=== PATIENT | female | born 1995 | race Caucasian/White ===

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

== ENCOUNTER 2017-10-12 01:23 | Emergency (ER) | payer OTHER ==
[~2017-10-12] VITALS: Ht 160 cm; Wt 68.0 kg
[~2017-10-12 01:23] MED LIST: IBUPROFEN600 M1 PO; LEVSIN0.125 M1 PO; ZOFRAN ODT4 M1 SL
--- NOTE | 2017-10-12 01:46 | ED CARDIAC/CP/PALPITATIONS ---
History of Present Illness General Chief Complaint: Chest Pain Stated Complaint: PT C/O CHEST DISCOMFORT/PAIN Source: patient, friend Exam Limitations: no limitations Vital Signs & Intake/Output Vital Signs & Intake/Output Vital Signs Date Time Temp Pulse Resp B/P B/P Pulse O2 O2 Flow FiO2 Mean Ox Delivery Rate 10/12 0138 99 Room Air 10/13 135 96.8 87 18 119/76 98 Room Air Allergies Coded Allergies: Bleach (Sodium Hypochlorite) (Mild, HIVES 12/28/16) Reconcile Medications Hyoscyamine (Levsin) 0.125 MG TABLET 1-2 TAB PO Q6P PRN ABDOMINAL CRAMPS Ibuprofen 600 MG TABLET 1 TAB PO Q6P PRN PAIN with food Ondansetron (Zofran Odt) 4 MG TAB.RAPDIS 1 TAB SL Q6P PRN NAUSEA/VOMITING Triage Note: PT FROM HOME C/O CHEST PAIN X1 HR. PER PT SHE WAS DRIVING [place] FROM [place] AND FELT A SHARP CHEST PAIN LASTING SECONDS, CP IS INTERMITTENT. PT STATES SOB WHEN CP OCCURS, DENIES JAW OR BACK PAIN, N/V. PT STATES LEFT ARM AND FOOT ARE NUMB AND TINGLING. PT VSS. NO DISTRESS NOTED CURRENTLY. Triage Nurses Notes Reviewed? yes : No Patient currently breastfeeds: No HPI: Patient presents with a sharp substernal chest pain which has been occurring on and off over the past hour. Patient states the pain will come on suddenly and lasts a few seconds and then go away. There is no radiation. There are no aggravating or mitigating factors. The patient started while driving. Patient states she is now beginning to feel slightly short of breath. Patient states on the waiting room she suddenly felt she had to move her bowels and passed a moderate amount of bright red blood per rectum. Patient is now getting a periumbilical crampy pain. There is no radiation of that pain. The sharp chest pain she rates as a 7 out of 10 when it is present and is 0 out of 10 when it goes away. The crampy abdominal pain she rates as a 3 out of 10 and is constant. There is no radiation. There are no aggravating or mitigating factors. It seemed just started a few minutes ago. Past History Travel History Traveled to [place] past 21 day No Medical History Any Pertinent Medical History? see below for history Gastrointestinal: irritable bowel syndrome Surgical History Surgical History: non-contributory Psychosocial History What is your primary language Occitan Tobacco Use: Never used ETOH Use: denies use Illicit Drug Use: denies illicit drug use Family History Hx Contributory? No Review of Systems Review of Systems Constitutional: Reports: no symptoms. EENTM: Reports: no symptoms. Respiratory: Reports: see HPI, short of breath. Cardiovascular: Reports: see HPI, chest pain. GI: Reports: see HPI, abdominal pain, bloody stool. Genitourinary: Reports: no symptoms. Musculoskeletal: Reports: no symptoms. Skin: Reports: no symptoms. Neurological/Psychological: Reports: no symptoms. Hematologic/Endocrine: Reports: no symptoms. Immunologic/Allergic: Reports: no symptoms. All Other Systems: Reviewed and Negative Physical Exam Physical Exam General Appearance: well developed/nourished, alert, awake, anxious, mild distress Head: atraumatic Eyes: Bilateral: PERRL, EOMI. Ears, Nose, Throat: normal pharynx, normal ENT inspection, hearing grossly normal Neck: normal inspection, supple, full range of motion Respiratory: normal breath sounds, chest non-tender, no respiratory distress, lungs clear Cardiovascular: regular rate/rhythm, normal peripheral pulses Gastrointestinal: normal bowel sounds, soft, non-tender, no organomegaly Back: normal inspection, normal range of motion Extremities: normal inspection, normal capillary refill, normal range of motion, no edema Neurologic/Psych: no motor/sensory deficits, awake, alert, oriented x 3, normal gait, normal mood/affect Skin: intact, normal color, warm/dry Lymphatic: no anterior cervical andrew Core Measures ACS in differential dx? No CVA/TIA Diagnosis No Sepsis Present: No Sepsis Focused Exam Completed? No Progress Differential Diagnosis: AMI, cholecystitis, costochondritis, myocarditis, pericarditis, pulmonary embolism, PUD/GERD Plan of Care: Orders Procedure Date/time Status URINALYSIS 10/12 145 Complete TROPONIN LEVEL 10/12 145 Complete LIPASE 10/12 145 Complete HUMAN BETA HCG SCREEN 10/12 145 Complete D-DIMER 10/12 145 Complete COMPREHENSIVE METABOLIC PANEL 10/12 145 Complete CBC WITHOUT DIFFERENTIAL 10/12 145 Complete AMYLASE 10/12 145 Complete EKG 10/129 Active Laboratory Tests 10/12/17 0226: Urine Color YEL, Urine Clarity CLEAR, Urine pH 6.5, Ur Specific [place] 1.025, Urine Protein NEG, Urine Ketones NEG, Urine Nitrite NEG, Urine Bilirubin NEG, Urine Urobilinogen 0.2, Ur Leukocyte Esterase NEG, Ur Microscopic EXAM NOT REQUIRED, Urine Hemoglobin NEG, Urine Glucose NEG 10/12/17 0155: Anion Gap 14, Estimated GFR > 60, BUN/Creatinine Ratio 16.7, Glucose 83, Calcium 10.1, Total Bilirubin 0.5, AST 35, ALT 75 H, Alkaline Phosphatase 66, Troponin I < 0.01, Total Protein 6.6, Albumin 4.2, Globulin 2.4, Albumin/Globulin Ratio 1.8, Amylase 56, Lipase 79, Total Beta HCG NEGATIVE, D-Dimer High Sensitivty < 200, CBC w Diff MAN DIFF ORDERED, RBC 4.48, MCV 84.9, MCH 27.4, MCHC 32.2 L, RDW 13.2, MPV 9.3, Gran % 47.8, Lymphocytes % 42.5, Monocytes % 7.6, Eosinophils % 1.4, Basophils % 0.7, Absolute Granulocytes 5.0, Segmented Neutrophils 46, Absolute Lymphocytes 4.5 H, Lymphocytes 48, Monocytes 5, Absolute Monocytes 0.8 H, Eosinophils 1, Absolute Eosinophils 0.1, Absolute Basophils 0.1, Platelet Estimate ADEQUATE, Hypochromic-Microcytic 1+, Poikilocytosis 1+, Ovalocytes 1+, Fld Total RBCs Counted 100 Diagnostic Imaging: Viewed by Me: CT Scan. Discussed w/RAD: CT Scan. Radiology Impression: PATIENT: HARPREET BOWLES PRESENT AGE: 22 PATIENT ACCOUNT NO: [id number] : 97 LOCATION: [facility] ORDERING PHYSICIAN: Bassem Archer MD SERVICE DATE: 10/12/17 EXAM TYPE: CAT - CT ABD & PELVIS W IV CONTRAST EXAMINATION: CT ABDOMEN AND PELVIS WITH CONTRAST CLINICAL INFORMATION: Left lower quadrant pain. Colitis. COMPARISON: None TECHNIQUE: Multidetector volumetric imaging was performed of the abdomen and pelvis following IV administration of 94 mL of Optiray 320 intravenous contrast. Sagittal and coronal reformatted images were obtained on the technologist's workstation. DLP: 307.57 mGy-cm FINDINGS: LUNG BASES: The visualized lung bases are unremarkable. LIVER, GALLBLADDER, AND BILIARY TREE: The liver is normal in size, shape, and attenuation. No focal hepatic lesion or biliary ductal dilatation is present. The gallbladder is unremarkable with no evidence of radiopaque gallstones, gallbladder wall thickening, or obvious pericholecystic inflammatory changes. PANCREAS: Unremarkable. SPLEEN: Unremarkable. ADRENAL GLANDS: Unremarkable. KIDNEYS AND URETERS: The kidneys are normal in size, shape , and attenuation. No hydronephrosis, hydroureter, or calculi seen. No perinephric stranding. BLADDER: Unremarkable. GASTROINTESTINAL TRACT: The small and large bowel are unremarkable. The appendix is unremarkable. ABDOMINAL WALL: No significant hernia is appreciated. LYMPH NODES: Normal. VASCULAR: Unremarkable. PELVIC VISCERA: Unremarkable. OSSEOUS STRUCTURES: Unremarkable. IMPRESSION: No significant abnormality. DICTATED BY: Chito Vazquez MD DATE/TIME DICTATED:10/12/17357 FROZEN MEAT CUTTER:NICKY DATE/TIME TRANSCRIBED:357 CONFIDENTIAL, DO NOT COPY WITHOUT APPROPRIATE AUTHORIZATION. < Electronically signed in Other Vendor System> SIGNED BY: Chito Vazquez MD 0403 Initial ED EKG: NSR, no ST T wave changes Comments: Patient has not had any more episodes of chest pain or shortness of breath. She is not had any more episodes of bright red blood per rectum however she continues to get the abdominal cramps pain in the left lower quadrant followed by yellow diarrhea. Patient has moved her bowels twice in the emergency department since she first came in. Departure Departure Disposition: HOME OR SELF CARE Condition: Stable Clinical Impression Primary Impression: Chest pain, unspecified Secondary Impressions: Dyspnea, Lower abdominal pain, unspecified Referrals: Patient Has No Primary Care Dr (PCP/Family) Additional Instructions: RETURN IF SYMPTOMS WORSEN OR FOR ANY CONCERNS Departure Forms: Customer Survey General Discharge Information Critical Care Note Critical Care Note Critical Care Time: non-applicable
[2017-10-12 02:22] LABS: ABSOLUTE BASOPHIL COUNT 0.1 /CUMM (0.0-0.2); ABSOLUTE EOSINOPHIL COUNT 0.1 /CUMM (0.0-0.7); ABSOLUTE LYMPH COUNT 4.5 /CUMM (1.2-3.4); ABSOLUTE MONOCYTE COUNT 0.8 /CUMM (0.10-0.60); BASOPHIL % 0.7 % (0.0-2.0); EOSINOPHIL % 1.4 % (0-5); GRANULOCYTE % 47.8 % (42.2-75.2); MEAN CORPUSCULAR HGB 27.4 PG (27.0-31.0); MEAN CORPUSCULAR HGB CONC 32.2 G/DL (33.0-37.0); MEAN CORPUSCULAR VOLUME 84.9 FL (81.0-99.0); MEAN PLATELET VOLUME 9.3 FL (7.4-10.4); PLATELET COUNT 304 /CUMM (130-400); RBC DISTRIBUTION WIDTH 13.2 % (11.5-14.5); RED BLOOD CELL CT 4.48 /CUMM (4.20-5.40); WHITE BLOOD CELL COUNT 10.5 /CUMM (4.8-10.8)
--- NOTE | 2017-10-12 04:03 | CT SCAN REPORT ---
EXAMINATION: CT ABDOMEN AND PELVIS WITH CONTRAST CLINICAL INFORMATION: Left lower quadrant pain. Colitis. COMPARISON: None TECHNIQUE: Multidetector volumetric imaging was performed of the abdomen and pelvis following IV administration of 94 mL of Optiray 320 intravenous contrast. Sagittal and coronal reformatted images were obtained on the technologist's workstation. DLP: 307.57 mGy-cm FINDINGS: LUNG BASES: The visualized lung bases are unremarkable. LIVER, GALLBLADDER, AND BILIARY TREE: The liver is normal in size, shape, and attenuation. No focal hepatic lesion or biliary ductal dilatation is present. The gallbladder is unremarkable with no evidence of radiopaque gallstones, gallbladder wall thickening, or obvious pericholecystic inflammatory changes. PANCREAS: Unremarkable. SPLEEN: Unremarkable. ADRENAL GLANDS: Unremarkable. KIDNEYS AND URETERS: The kidneys are normal in size, shape, and attenuation. No hydronephrosis, hydroureter, or calculi seen. No perinephric stranding. BLADDER: Unremarkable. GASTROINTESTINAL TRACT: The small and large bowel are unremarkable. The appendix is unremarkable. ABDOMINAL WALL: No significant hernia is appreciated. LYMPH NODES: Normal. VASCULAR: Unremarkable. PELVIC VISCERA: Unremarkable. OSSEOUS STRUCTURES: Unremarkable. IMPRESSION: No significant abnormality.
[2017-10-12 04:29] VITALS: BP 114/72
== END 2017-10-12 04:29 ==
LOC: ERH 01:23
PROVIDERS: Emergency Medicine
DX: R07.89 Other chest pain (principal); R06.00 Dyspnea, unspecified; R10.33 Periumbilical pain
CPT/HCPCS: 74177; 81003; 93005; 93010; 96360